=== PATIENT | male | born 1965 | race African-American/Black ===

== ENCOUNTER 2017-03-30 17:22 | Emergency (ER) | payer OTHER ==
[2017-03-30 17:47] VITALS: BP 144/95
[2017-03-30] MEDS ORDERED: Lidocaine 1% 50 ML MDV INJECT ONE (18:09)
--- NOTE | 2017-03-30 18:32 | EDM.PDOC ---
ED HPI GENERAL MEDICAL PROBLEM - General Chief Complaint: Upper Extremity Injury/Pain Stated Complaint: L THUMB LAC Time Seen by Provider: 03/30/17 18:00 Source of Information: Reports: Patient History Limitations: Reports: No Limitations - History of Present Illness INITIAL COMMENTS - FREE TEXT/NARRATIVE: 51 year old male presents for evaluation and treatment of an injury to the left thumb. Injury occurred this afternoon at work. Reports he was lifting a piece of pipe when he crushed his left thumb between the pipe and the pipe rack. Reports 4/10 pain to the left thumb. Laceration to the left thumb. No numbness, tingling or decreased ROM to the left hand. Unsure of last tetanus. Patient is tight handed. Left 1-Thumb Pain Score (Numeric/FACES): 4 - Related Data Allergies Allergy/AdvReac Type Severity Reaction Status Date / Time No Known Allergies Allergy Verified 03/30/17 18:35 Past Medical History - Past Health History Medical/Surgical History: Denies Medical/Surgical History Social & Family History - Family History Family Medical History: Noncontributory - Tobacco Use Smoking Status *Q: Never Smoker Second Hand Smoke Exposure: No - Caffeine Use Caffeine Use: Reports: Coffee, Soda - Recreational Drug Use Recreational Drug Use: No Review of Systems - Review of Systems Review Of Systems: See Below Musculoskeletal: Reports: Hand Pain (left thumb), Other (no decreased ROM to the left hand) Skin: Reports: Wound (left thumb) Neurological: Denies: Numbness, Tingling ED EXAM, GENERAL - Physical Exam Exam: See Below Exam Limited By: No Limitations General Appearance: Alert, WD/WN, No Apparent Distress Respiratory/Chest: No Respiratory Distress Cardiovascular: Normal Peripheral Pulses, Regular Rate, Rhythm Peripheral Pulses: 2+: Radial (L), Radial (R) Extremities: Normal Inspection, Normal Capillary Refill, Other (no obvious deformity; 2cm laceration to the left dorsal thumb over the proximal phalnex; able to make a fist, adduct and abduct the thumb, oppose fingers to tthumb, able to flex and extend the left thumb. ) Neurological: Alert, Oriented, Normal Cognition, No Motor/Sensory Deficits (to the left hand) Psychiatric: Normal Affect, Normal Mood Skin Exam: Warm, Dry, Normal Color, Other (2cm laceration to the left dorsal thumb over the proximal phalnex) ED TRAUMA EXTREMITY PROCEDURES - Laceration/Wound Repair Left Proximal Finger Lac/Wound Length In cm: 2 Appearance: Subcutaneous, Linear, Clean Distal NVT: Neuro & Vascular Intact, No Tendon Injury Anesthetic Type: Local Local Anesthesia - Lidocaine (Xylocaine): 1% Plain Local Anesthetic Volume: 2cc Skin Prep: Chlorhexidine (Hibiciens), Saline, Sterile Drape Exploration/Debridement/Repair: Wound Explored, No Foreign Material Found Closed With: Sutures Suture Size: 4-0 # of Sutures: 4 Suture Type: Nylon, Interrupted, Simple Sterile Dressing Applied: Nurse Tetanus Status Addressed: Yes Complications: No Course - Vital Signs Last Recorded V/S: Last Vital Signs Temp 36.7 C 03/30/17 17:41 Pulse 73 03/30/17 17:41 Resp 17 03/30/17 17:41 BP 144/95 H 03/30/17 17:41 Pulse Ox 96 03/30/17 17:41 - Orders/Labs/Meds Meds: Medications Discontinued Medications Generic Name Dose Route Start Last Admin Trade Name Wesley PRN Reason Stop Dose Admin Lidocaine HCl 50 ml 03/30/17 18:09 03/30/17 18:35 Xylocaine 1% INJECT 03/30/17 18:10 50 ml ONETIME ONE Administration - Radiology Interpretation Free Text/Narrative:: xray of the left hand shows no acute fractures or dislocations. Reviewed by myself and Dr. Pryor - Re-Assessments/Exams Free Text/Narrative Re-Assessment/Exam: 03/30/17 19:28 I reviewed the xrays with the patient. Laceration repaired with 4 sutures. Patient tolerated the procedure well. No complications. Tetanus was updated. Discharge instructions as documented. Departure - Departure Time of Disposition: 19:27 Disposition: Home, Self-Care 01 Condition: Good Clinical Impression: Laceration - Discharge Information Instructions: Laceration Care, Adult, [id number] Referrals: PCP,None [Primary Care Provider] - Jorge Zhou MD [Physician] - Forms: ED Department Discharge Additional Instructions: Wash the wound with gentle soap and water twice a day. Antibacterial ointment such as Neosporin or bacitracin to the wound twice a day. Keep wound the covered. Monitor for signs of infection such as increased swelling, pus or redness. Present to the clinic or the ER should these develop. [id number] Tylenol or Motrin as needed for pain relief. Have the sutures removed in 10 days. Follow-up with Dr. Zhou at [facility] for suture removal. Please call [phone] to schedule with an appointment with him. Please return to the ER if your symptoms change or worsen.
--- NOTE | 2017-03-31 08:35 | CR ---
Left hand: Four views of the left hand were obtained. Comparison: No previous study. Joint spaces are preserved. No fracture, dislocation or other bony abnormality is seen. Impression: 1. No abnormality is identified on left hand exam. Diagnostic code #2
== END 2017-03-30 19:30 | disposition home or self-care (01) ==
LOC: JD.ED 17:22
DX: S61.012A Laceration without foreign body of left thumb without damage to nail, initial encounter (principal); W23.0XXA Caught, crushed, jammed, or pinched between moving objects, initial encounter; Y99.0 Civilian activity done for income or pay
CPT/HCPCS: 12001; 73130-26-LT; 73130-LT; 99283-25